=== PATIENT | male | born 1995 | race American Indian/Alaskan Native ===

== ENCOUNTER 2019-08-12 09:42 | Emergency (ER) | payer BC ==
[2019-08-12 10:09] VITALS: BP 125/71
--- NOTE | 2019-08-12 14:05 | Emergency Department Report ---
Chief Complaint: Skin/Abscess/Foreign Body Stated Complaint: GENTIALS AREA PAIN/LUMP Time Seen by Provider: 08/12/19 12:15 - HPI History of Present Illness: pt is a 24-year-old male presents emergency room with complaints of a lump to the groin that began two days. he denies any dysuria, penile discharge, pain or edema of the testicles, fever, vomiting, hematuria, abdominal pain, or drainage. he denies any medical problems. he denies any allergies to meds. he states he has not had unprotected intercourse. vitals are normal on exam: non toxic appearing, no acute distress paraprofessional interpreter during examination: will, EMT normal penile and testicular exam, no TTP or edema of the testicles, testicles in normal oritention, no high riding of the testicles, normal cremasteric reflex, no TTP or edema of the epididymis bilaterally, no penile discharge, no lesions or blisters of the penis, on the right scrotal region there is a 1 cm area of induration, no obvious fluctuance, no drainage, consistent with an ingrown hair examination consistent with small ingrown hair does not appear to have active infection there is no drainable abscess at this time advised pt to use warm compresses three times a day, clean area with perioxide and follow up with a primary care doctor in the next 2-3 days to have the area reexamined, advised pt that if the area becomes larger, starts draining or begin having fever or any other symptoms then to return immediately pt denies concern for STD, but advised pt to receive routine STD testing at the health department pt is presenting with a non medical emergency at this time medical screening examination performed and there is no threat to life or limb pt referred to primary care clinics and the health department - Exam Vital Signs: Vital Signs 08/12/19 08/12/19 10:08 10:09 Temperature 99 F Pulse Rate 74 Respiratory 20 Rate Blood Pressure 125/71 O2 Sat by Pulse 100 Oximetry MSE screening note: Focused history and physical exam performed. ED Disposition for MSE Clinical Impression: Ingrown hair Disposition: Z- MED SCREENING EXAM-LEFT Is pt being admited?: No Does the pt Need Aspirin: No Condition: Stable Instructions: Folliculitis (ED) Additional Instructions: please use warm compresses three times a day, clean area with perioxide and follow up with a primary care doctor in the next 2-3 days to have the area reexamined, if the area becomes larger, starts draining or begin having fever or any other symptoms then return immediately. please be seen at the health department for routine STD screening. return to the emergency room for any new or worsening symptoms. Referrals: MARIA DEL CARMEN VILLARREAL MD [Staff Physician] - 2-3 Days [facility] [Outside] - 2-3 Days [facility] [Outside] - 2-3 Days Time of Disposition: 14:12 Print Language: PASHTO
== END 2019-08-12 15:16 | disposition left against medical advice (07) ==
LOC: ED 09:42
DX: L73.1 Pseudofolliculitis barbae (principal)
CPT/HCPCS: 99281

== ENCOUNTER 2020-08-18 18:18 | Emergency (ER) | payer BC ==
[2020-08-18 19:28] VITALS: BP 133/78
[2020-08-18] MEDS ORDERED: LIDOCAINE-MPF (1%) 10 MG/1 ML VIAL 5 ML INFILTRATI ONE (19:47)
--- NOTE | 2020-08-18 19:52 | Emergency Department Report ---
ED Male HPI - General Chief complaint: Urogenital-Male Stated complaint: POSSIBLE STD Time Seen by Provider: 08/18/20 19:44 Source: patient Mode of arrival: Ambulatory Limitations: No Limitations - History of Present Illness Initial comments: 25-year-old male presents to the ER today complaint of dysuria. Patient states that his symptoms started a couple days ago. Patient states that he was notified by his girlfriend today that she was positive for chlamydia. He reports associated urinary urgency, and mild left lower quadrant abdominal pain. He denies any apparent penile discharge. He denies any hematuria. He denies any testicular pain or swelling. MD Complaint: dysuria -: days(s) - Related Data Previous Rx's Medication Instructions Recorded Last Taken Type metroNIDAZOLE [Flagyl] 500 mg PO Q8HR #21 tablet 06/20/15 Unknown Rx Doxycycline Hyclate 100 mg PO BID #14 tablet. 08/18/20 Unknown Rx Allergies Allergy/AdvReac Type Severity Reaction Status Date / Time Fish Containing Products Allergy Swelling Verified 08/12/19 10:04 peach Allergy Swelling Verified 08/12/19 10:04 ED Review of Systems ROS: Stated complaint: POSSIBLE STD Other details as noted in HPI ED Past Medical Hx - Past Medical History Previous Medical History?: No - Surgical History Past Surgical History?: No - Social History Smoking Status: Current Some Day Smoker - Medications Home Medications: Home Medications Medication Instructions Recorded Confirmed Last Taken Type metroNIDAZOLE [Flagyl] 500 mg PO Q8HR #21 tablet 06/20/15 Unknown Rx Doxycycline Hyclate 100 mg PO BID #14 tablet. 08/18/20 Unknown Rx ED Physical Exam - General Limitations: No Limitations General appearance: alert, in no apparent distress - Head Head exam: Present: atraumatic, normocephalic, normal inspection - Respiratory Respiratory exam: Absent: respiratory distress - Cardiovascular Cardiovascular Exam: Present: regular rate - GI/Abdominal GI/Abdominal exam: Present: soft. Absent: distended, tenderness - Neurological Exam Neurological exam: Present: alert, oriented X3, CN II-XII intact - Psychiatric Psychiatric exam: Present: normal affect, normal mood - Skin Skin exam: Present: intact ED Course Vital Signs 08/18/20 19:27 Temperature 97.6 F Pulse Rate 77 Respiratory 17 Rate Blood Pressure 133/78 O2 Sat by Pulse 98 Oximetry Critical care attestation.: If time is entered above; I have spent that time in minutes in the direct care of this critically ill patient, excluding procedure time. ED Disposition Clinical Impression: Exposure to STD Disposition: DC-01 TO HOME OR SELFCARE Is pt being admited?: No Does the pt Need Aspirin: No Condition: Stable Instructions: Safe Sex Additional Instructions: Take the doxycyline as prescribed. Follow up as needed with PCP. It is important to practice safe sex. Return to ED if symptoms changes or worsens in any way. Prescriptions: Doxycycline Hyclate 100 mg PO BID #14 tablet.dr Referrals: MARIA DEL CARMEN VILLARREAL MD [Staff Physician] - 3-5 Days Time of Disposition: 19:49
[2020-08-18 22:18] LABS: Bacteria,Urine 1+ /HPF (Negative); Bilirubin,Urine NEG (Negative); Blood,Urine NEG (Negative); Color,Urine Yellow (Yellow); Mucus,Urine 3+ /HPF; Protein,Urine <15 mg/dL mg/dL (Negative)
== END 2020-08-18 20:51 | disposition home or self-care (01) ==
LOC: ED 18:18
DX: R30.0 Dysuria (principal); R10.32 Left lower quadrant pain; R39.15 Urgency of urination; Z20.2 Contact with and (suspected) exposure to infections with a predominantly sexual mode of transmission; F17.200 Nicotine dependence, unspecified, uncomplicated; Z79.899 Other long term (current) drug therapy; Z91.013 Allergy to seafood; Z91.018 Allergy to other foods
CPT/HCPCS: 81001; 96372; 99283; J0696

== ENCOUNTER 2021-08-09 19:02 | Emergency (ER) | payer SELFPAY ==
[2021-08-09] MEDS ORDERED: LIDOCAINE-MPF (1%) 10 MG/1 ML VIAL 5 ML INFILTRATI ONE (21:08)
[2021-08-09] MEDS ORDERED: AZITHROMYCIN 250 MG TAB PO ONE (21:09)
--- NOTE | 2021-08-09 21:20 | Emergency Department Report ---
ED General Adult HPI - General Chief complaint: Urogenital-Male Stated complaint: RASH/LOW ABDOMINAL PAIN Time Seen by Provider: 08/09/21 21:05 Source: patient Mode of arrival: Ambulatory Limitations: No Limitations - History of Present Illness Initial comments: Patient 26-year-old male who presents for partner advised that she was positive for chlamydia today. Patient states urinary frequency urgency and dysuria. There is no hematuria. There is no fevers or chills no nausea no vomiting. There is no rash or open lesions. Patient denies other symptoms. - Related Data Previous Rx's Medication Instructions Recorded Last Taken Type metroNIDAZOLE [Flagyl] 500 mg PO Q8HR #21 tablet 06/20/15 Unknown Rx Doxycycline Hyclate 100 mg PO BID #14 tablet. 08/18/20 Unknown Rx Doxycycline Hyclate [Doxycycline 100 mg PO BID 7 Days #14 tab 08/09/21 Unknown Rx Hyclate TAB] Allergies Allergy/AdvReac Type Severity Reaction Status Date / Time Fish Containing Products Allergy Swelling Verified 08/09/21 20:57 peach Allergy Swelling Verified 08/09/21 20:57 ED Review of Systems ROS: Stated complaint: RASH/LOW ABDOMINAL PAIN Other details as noted in HPI Constitutional: denies: chills, fever Eyes: denies: eye pain, eye discharge, vision change ENT: denies: ear pain, throat pain Respiratory: denies: cough, shortness of breath, wheezing Cardiovascular: denies: chest pain, palpitations Endocrine: no symptoms reported Gastrointestinal: denies: abdominal pain, nausea, diarrhea Genitourinary: urgency, dysuria, frequency. denies: hematuria, discharge, testicular pain, testicular mass Musculoskeletal: denies: back pain, joint swelling, arthralgia Skin: denies: rash, lesions Neurological: denies: headache, weakness, paresthesias, vertigo Psychiatric: denies: anxiety, depression Hematological/Lymphatic: denies: easy bleeding, easy bruising ED Past Medical Hx - Past Medical History Hx Asthma: Yes - Surgical History Past Surgical History?: No - Social History Smoking Status: Current Some Day Smoker - Medications Home Medications: Home Medications Medication Instructions Recorded Confirmed Last Taken Type metroNIDAZOLE [Flagyl] 500 mg PO Q8HR #21 tablet 06/20/15 Unknown Rx Doxycycline Hyclate 100 mg PO BID #14 tablet. 08/18/20 Unknown Rx Doxycycline Hyclate [Doxycycline 100 mg PO BID 7 Days #14 tab 08/09/21 Unknown Rx Hyclate TAB] ED Physical Exam - General Limitations: No Limitations General appearance: alert, in no apparent distress - Head Head exam: Present: atraumatic, normocephalic - Eye Eye exam: Present: PERRL, EOMI Pupils: Present: normal accommodation - ENT ENT exam: Present: mucous membranes moist - Neck Neck exam: Present: normal inspection, full ROM. Absent: tenderness - Respiratory Respiratory exam: Present: normal lung sounds bilaterally. Absent: respiratory distress, wheezes, stridor, chest wall tenderness - Cardiovascular Cardiovascular Exam: Present: regular rate, normal rhythm, normal heart sounds - GI/Abdominal GI/Abdominal exam: Present: soft, normal bowel sounds. Absent: distended, tenderness - Rectal Rectal exam: Present: deferred - Extremities Exam Extremities exam: Present: normal inspection, full ROM. Absent: tenderness - Back Exam Back exam: Present: normal inspection, full ROM. Absent: tenderness, CVA tenderness (R), CVA tenderness (L) - Neurological Exam Neurological exam: Present: alert, oriented X3, CN II-XII intact, normal gait - Expanded Neurological Exam Expanded Patient oriented to: Present: person, place, time Speech: Present: fluid speech Motor strength exam: RUE: 5, LUE: 5, RLE: 5, LLE: 5 Best Eye Response ([place]): (4) open spontaneously Best Motor Response ([place]): (6) obeys commands Best Verbal Response ([place]): (5) oriented Eliana Total: 15 - Psychiatric Psychiatric exam: Present: normal affect, normal mood - Skin Skin exam: Present: warm, dry, intact, normal color. Absent: rash ED Medical Decision Making - Medical Decision Making Patient treated for STI, follow-up with health department tomorrow for HIV and HSV screening. Patient verbalized agreement understanding with discharge plan. Patient DC'd home stable condition at this time. Critical care attestation.: If time is entered above; I have spent that time in minutes in the direct care of this critically ill patient, excluding procedure time. ED Disposition Clinical Impression: STI (sexually transmitted infection) Disposition: HOME / SELF CARE / HOMELESS Is pt being admited?: No Does the pt Need Aspirin: No Condition: Stable Instructions: Safe Sex Additional Instructions: Take medications as prescribed, follow-up tomorrow with health department for HIV and HSV screening. Prescriptions: Doxycycline Hyclate [Doxycycline Hyclate TAB] 100 mg PO BID 7 Days #14 tab Referrals: [facility] [Provider Group] - 3-5 Days [facility] [Outside] - 3-5 Days Forms: Work/School Release Form(ED) Time of Disposition: 21:20
[2021-08-09 22:37] VITALS: BP 127/82
== END 2021-08-09 22:32 | disposition home or self-care (01) ==
LOC: ED 19:02
DX: A64 Unspecified sexually transmitted disease (principal); J45.909 Unspecified asthma, uncomplicated; F17.200 Nicotine dependence, unspecified, uncomplicated
CPT/HCPCS: 96372; 99282; J0696; J3490